=== PATIENT | male | born 1980 | race Caucasian/White ===

== ENCOUNTER 2020-04-11 16:56 | Emergency (ER) | payer OTHER, SELFPAY ==
[2020-04-11 17:09] VITALS: BP 122/80; PULSE 65; RESP 18; TEMP 36.8; O2SAT 95; BMI 27.8
[2020-04-11 17:40] LABS: Basophils % 0.7 % (0.1-2.0); Eosinophils # 0.1 K/mm3 (0.0-0.4); Eosinophils % 2.4 % (0.1-12.0); Hematocrit 46.6 % (42.0-52.0); Hemoglobin 17.1 g/dL (14.1-18.0); Lymphocytes # 1.5 K/mm3 (0.7-4.5); Mean Corpuscular HGB Conc 36.7 g/dL (31.8-35.4); Mean Corpuscular Hemoglobin 34.3 pg (27.0-31.2); Mean Corpuscular Volume 93.4 fl (80-94); Mean Platelet Volume 7.5 fl (7.4-10.4); Monocytes # 0.3 K/mm3 (0.1-1.0); Monocytes % 5.4 % (1.7-9.3); Neutrophils # 3.5 K/mm3 (1.8-7.8); Neutrophils % 63.5 % (37.0-80.0); Platelet Count 240 K/mm3 (142-424); Red Blood Count 4.98 M/mm3 (4.60-6.20); Red Cell Distribution Width 12.9 % (11.5-17.5); White Blood Count 5.5 K/mm3 (4.8-10.8)
[2020-04-11 17:47] LABS: Alanine Aminotransferase 125 U/L (12-78); Albumin Level 4.3 g/dl (3.5-5.0); Albumin/Globulin Ratio 1.4 (1.1-1.8); Alkaline Phosphatase 99 U/L (38-126); Anion Gap 12.7 mEq/L (5-15); Aspartate Amino Transferase 66 U/L (17-59); Bilirubin,Total 0.7 mg/dl (0.2-1.3); Blood Urea Nitrogen 14 mg/dl (9-20); Calcium 8.7 mg/dl (8.4-10.2); Carbon Dioxide 25 mmol/L (22.0-30.0); Chloride 104 mmol/L (98-107); Creatinine Clearance Estimated 181 mL/min (50-200); Estimated Glomerular Filt Rate 124 ml/min (>60); GFR (African American) 150 ML/MIN (>60); Glucose 92 mg/dl (74-100); Potassium 3.7 mmoL/L (3.5-5.1); Sodium 138 mmol/L (136-145); Total Protein,Serum 7.3 g/dl (6.3-8.2)
[2020-04-11 18:00] LABS: D-Dimer 138 ng/mL (0-400)
--- NOTE | 2020-04-11 18:08 | [facility].EDGENADL ---
ED Disposition Clinical Impression: DVT (deep venous thrombosis) Disposition: Home, Self-Care Condition on Discharge: Good Instructions: Deep Vein Thrombosis Additional Instructions: These follow-up with the vascular lab for a lower extremity ultrasound tomorrow morning. [phone]. Prescriptions: Apixaban [Eliquis 5mg tab] 5 mg PO BID 30 Days #74 pack Prescription Printed Enoxaparin Sodium [Lovenox 100mg/mL syringe] 100 mg SQ BID 2 Days #4 syringe Prescription Printed Referrals: PCP,No [Primary Care Provider] - - Critical Care Critical Care Time: No Attestation: On 04/11/20, the high probability of a clinically significant, sudden or life threatening deterioration of the following system(s) required my full and direct attention, intervention and personal management. The time I documented below is in addition to time spent performing reported procedures but includes the following listed in this critical care notation. Medical Decision Making - Medical Records Medical records reviewed: Yes: I reviewed the patient's medical records. - George Inquiry Pt receiving controlled substance: No Vital Signs: 04/11/20 17:09 Temperature 98.2 F Temperature Source Oral Pulse Rate [Radial] 65 Respiratory Rate 18 Blood Pressure [Right Arm] 122/80 Blood Pressure Mean [Right Arm] 94 Blood Pressure Source [Right Arm] Automatic Cuff Blood Pressure Position [Right Arm] Sitting 02 Sat by Pulse Oximetry 95 Oxygen Delivery Method Room Air - Lab Data Lab results reviewed: Yes: I reviewed the patient's lab results. Lab Results 04/11/20 17:27: WBC 5.5, RBC 4.98, Hgb 17.1, Hct 46.6, MCV 93.4, MCH 34.3 H, MCHC 36.7 H, RDW 12.9, Plt Count 240, MPV 7.5, Neut % (Auto) 63.5, Lymph % (Auto) 28.0, [place] % (Auto) 5.4, Eos % (Auto) 2.4, Baso % (Auto) 0.7, Neut # (Auto) 3.5, Lymph # (Auto) 1.5, [place] # (Auto) 0.3, Eos # (Auto) 0.1, Baso # (Auto) 0.0 04/11/20 17:27: D-Dimer 138 04/11/20 17:27: Sodium 138, Potassium 3.7, Chloride 104, Carbon Dioxide 25, Anion Gap 12.7, BUN 14, Creatinine 0.70, Estimated Creat Clear 181, Estimated GFR 124, Est GFR ( Amer) 150, Glucose 92, Calcium 8.7, Total Bilirubin 0.7, AST 66 H, ALT 125 H, Alkaline Phosphatase 99, Total Protein 7.3, Albumin 4.3, Globulin 3.0, Albumin/Globulin Ratio 1.4 Result diagrams: 04/11/20 17:27 04/11/20 17:27 Medical Decision Narrative: Level of suspicion and concern is high for a DVT given the patient's history and transatlantic flight. I will go ahead and pretreat him with Lovenox subcu here in the ED and also a prescription with Lovenox and also a prescription for Eliquis. He will follow-up tomorrow and get a ultrasound done of the lower extremity. General Adult HPI - General Chief complaint: PAIN Stated complaint: Injury to left leg, possible blood clot Time Seen by Provider: 04/11/20 18:08 Mode of Arrival: Ambulatory Source of Information: Patient Limitations: No Limitations Description of Symptoms (Recalled from ER Triage Doc. by RN): Possible blood clot to left lower extremity. Pain, swelling, red and hot to touch. - History of Present Illness HPI narrative: 80-year-old male presents with left lower extremity swelling. Patient had injured his calf about 10 days prior to presenting here at the ED. He states he was carrying a child up an incline and he felt a pull in his gastrocnemius on the left side. Since then he is he has had some mild pain with no swelling and some ecchymosis around the ankle with no ankle injury. However the patient does live in [place] and on the translate flight over he noticed that he started to get some increased swelling in the left calf region and also some more pain and some mild erythema. Patient presents concerning about possible DVT.Patient denies any recent cough or shortness of breath, patient denies any sore throat or headache, patient denies any loss of taste or smell, patient denies any malaise or fatigue, pat
[2020-04-11 18:43] VITALS: BP 122/80; PULSE 65; RESP 18; TEMP 36.8; O2SAT 95
== END 2020-04-11 18:46 | disposition home or self-care (01) ==
PROVIDERS: Emergency Provider Family Medicine
DX: I82.4Z2 Acute embolism and thrombosis of unspecified deep veins of left distal lower extremity (principal); Z86.718 Personal history of other venous thrombosis and embolism; Z79.01 Long term (current) use of anticoagulants
CPT/HCPCS: 80053; 85025; 85378; 96372; 99282

== ENCOUNTER → 2020-04-12 10:08 | Outpatient (CLI) | payer OTHER, SELFPAY ==
--- NOTE | 2020-04-12 | CA_ITS ---
APPROVED REPORT Left Lower Extremity Venous Study for DVT. Senior Application Programmer: MAUREEN Indications Lower Extremity Pain: Lower Extremity Edema: Left Patient injured ankle 04/07. Patient flew from [place] 04/09. LLE is now swollen with pain in calf and ankle. Patient was started on Lovenox 04/12. Vein Imaging CFV (L): compressive, spontaneous, phasic, augmentation FEM (L): compressive, spontaneous, phasic, augmentation POP (L): compressive, spontaneous, phasic, augmentation PTV (L): Compressible GSV (L): compressive, spontaneous, phasic, augmentation SSV (L): Partially Compressible Peroneals (L):Compressible GAS (L): Compressible Findings No evidence of DVT in the veins scanned of the left lower extremity. The left Small Saphenous is not fully compressible with probable SVT. Conclusion No evidence of DVT in the veins scanned of the left lower extremity. The left Small Saphenous is not fully compressible with probable SVT. Electronically signed by : Natan Woods MD 04/12/2020 15:50:42
== END ==
LOC: RAD 10:13 → RT 10:47
PROVIDERS: Visit Provider Family Medicine
DX: M79.662 Pain in left lower leg (principal)
CPT/HCPCS: 93971